=== PATIENT | male | born 1960 | race Caucasian/White ===

== ENCOUNTER 2017-05-27 10:04 | Emergency (ER) | payer SELFPAY ==
[~2017-05-27] VITALS: Ht 190.5 cm; Wt 81.5 kg
[~2017-05-27 10:04] MED LIST: CYMB30CA PO; ECOT81TA2 PO; FENO1TAB76 PO; FOLI1 PO; LISI5 PO; LORTA5 PO; THERM PO; THIA100T PO
[2017-05-27 10:06] VITALS: BP 131/78; PULSE 84; RESP 20; TEMP 97.6; O2SAT 100
--- NOTE | 2017-05-27 10:21 | PD ---
HPI Chief Complaint: Cold / Flu Symptoms Time Seen by Provider: 10:12 Travel History International Travel<30 days: No Contact w/Intl Traveler<30days: No Traveled to known affect area: No History of Present Illness HPI 57-year-old male presents to the emergency department, with 60 history of upper respiratory symptoms including headache, postnasal drip, shortness of breath, ear pain, congestion in the chest, and cough. Patient states he quit smoking 2 weeks ago. He is currently living at the [facility]. He denies significant fever or chills but does have body aches. He feels worse today than he did yesterday. She states productive cough with yellow mucus this morning. Patient has no known drug allergies. PFSH Past Medical History Arthritis: Yes Autoimmune Disease: No Anxiety: Yes Depression: Yes Cancer: No Cardiovascular Problems: Yes (STENT) High Cholesterol: Yes Cerebrovascular Accident: Yes (TIA) Diabetes: No Endocrine: No Gastrointestinal Disorders: No Genitourinary: Yes Hypertension: Yes Implanted Vascular Access Dvce: No Musculoskeletal: Yes Neurologic: Yes Psychiatric: Yes Reproductive: No Respiratory: No Immunizations Current: Yes Past Surgical History Abdominal Surgery: No (HERNIA ) Cardiac Surgery: Yes (CARDIAC STENT) Ear Surgery: No Endocrine Surgery: No Eye Surgery: No Genitourinary Surgery: No Gynecologic Surgery: No Neurologic Surgery: No Oral Surgery: No Thoracic Surgery: No Other Surgery: Yes Social History Alcohol Use: Yes Tobacco Use: Yes Substance Use: No ( ) Allergies-Medications (Allergen,Severity, Reaction): Coded Allergies: No Known Allergies (Unverified , 04/29/16) Reported Meds & Prescriptions Reported Meds & Active Scripts Active Erie 5-325 mg (Hydrocodone-Acetaminophen 5-325 mg) 1 Tab 1 Tab PO Q6H PRN Prinivil 5 mg (Lisinopril) 5 Mg Tab 5 Mg PO DAILY Tricor (Fenofibrate) 48 Mg Tab 48 Mg PO DAILY Vitamin B1 (Thiamine HCl) 100 Mg Tab 100 Mg PO DAILY Thera M Plus (Multivitamins/Minerals Therap) 1 Tab Tab 1 Tab PO DAILY Folate 1 Mg Tab (Folic Acid) 1 Mg Tab 1 Mg PO DAILY Ecotrin (Aspirin) 81 Mg Tabec 81 Mg PO DAILY Reported Cymbalta (Duloxetine HCl) 30 Mg Cap 60 Mg PO BID Review of Systems Except as stated in HPI: all other systems reviewed are Neg General / Constitutional: Positive: Chills, No: Fever Eyes: No: Visual changes HENT: Positive: Headaches, Sore Throat, Rhinitis, Rhinorrhea, Congestion, Earache, No: Vertigo, Lightheadedness, Nosebleed, Neck Stiffness, Neck Pain, Gingival Bleeding, Dental Difficulties, Ear Discharge Cardiovascular: No: Chest Pain or Discomfort Respiratory: Positive: Cough, Shortness of Breath, No: Wheezing, Sneezing Gastrointestinal: No: Nausea, Vomiting, Diarrhea, Abdominal Pain Genitourinary: No: Dysuria Musculoskeletal: No: Pain Skin: No Rash Neurologic: No: Weakness Psychiatric: No: Depression Endocrine: No: Polydipsia Hematologic/Lymphatic: No: Easy Bruising Physical Exam Narrative GENERAL: Patient appears ill but not septic. SKIN: Warm and dry. Normal color. Normal turgor. HEAD: Atraumatic. Normocephalic. EYES: Pupils equal and round. No scleral icterus. No injection or drainage. ENT: No nasal bleeding or discharge. Mucous membranes pink and moist. TMs show the left TM be somewhat dull with erythema and injection. Patient has no sinus tenderness to palpation. Posterior pharynx is injected and raw appearing without significant swelling. Uvula is midline. No significant tonsillitis. NECK: Trachea midline. Supple nontender. CARDIOVASCULAR: Regular rate and rhythm. RESPIRATORY: No accessory muscle use. Coarse breath sounds to auscultation. No wheezing or rales. Breath sounds equal bilaterally. GASTROINTESTINAL: Abdomen soft, non-tender, nondistended. Hepatic and splenic margins not palpable. MUSCULOSKELETAL: Extremities without clubbing, cyanosis, or edema. No obvious deformities. NEUROLOGICAL: Awake and alert. No obvious cranial nerve deficits. Motor grossly within normal limits. Five out of 5 muscle strength in the arms and legs. Normal speech. PSYCHIATRIC: Appropriate mood and affect; insight and judgment normal. Data Data Last Documented VS Vital Signs Date Time Temp Pulse Resp B/P Pulse Ox O2 Delivery O2 Flow Rate FiO2 05/27/17 10:06 97.6 84 20 131/78 100 Room Air MDM Medical Decision Making Medical Screen Exam Complete: Yes Emergency Medical Condition: Yes Differential Diagnosis Upper respiratory infection. Otitis media. Postnasal drip. Bronchitis. Narrative Course Patient will be treated with azithromycin 250 mg as directed. Patient also given prednisone 20 mg twice a day 5 days. Patient also given albuterol metered-dose inhaler 2 puffs every 6 hours when necessary cough and wheeze. Patient is to rest and push fluids. Note is given to the patient for 5 days daily. Patient follow up if symptoms worsen as needed. Diagnosis Primary Impression: Left otitis media with effusion Additional Impression: Bronchitis Referrals: [facility] Patient Instructions: Acute Bronchitis (ED), General Instructions, How to Use a Metered-Dose Inhaler (ED) Departure Forms: Work Release Special Instructions: Light duty for the next 5 days. Additional Instructions: Patient will be treated with azithromycin 250 mg as directed. Patient also given prednisone 20 mg twice a day 5 days. Patient also given albuterol metered-dose inhaler 2 puffs every 6 hours when necessary cough and wheeze. Patient is to rest and push fluids. Note is given to the patient for 5 days daily. Patient follow up if symptoms worsen as needed. Med/Other Pt SpecificInfo: Prescription(s) given Disposition: 01 DISCHARGE HOME Condition: Stable Casper Menon May 27, 2017 10:21
[2017-05-27] MEDS ORDERED: VENTAER INH (10:22)
[2017-05-27] MEDS ORDERED: AZIT250T3 PO (10:22)
[2017-05-27] MEDS ORDERED: PRED20 PO (10:22)
== END 2017-05-27 11:19 | disposition home or self-care (01) ==
LOC: NEPK 10:04
DX: H65.92 Unspecified nonsuppurative otitis media, left ear (principal); J40 Bronchitis, not specified as acute or chronic; Z87.891 Personal history of nicotine dependence
CPT/HCPCS: 99284

== ENCOUNTER 2017-06-02 22:22 | Emergency (ER) | payer SELFPAY ==
[~2017-06-02] VITALS: Ht 190.5 cm; Wt 85.0 kg
[~2017-06-02 22:22] MED LIST changes: +AZIT250T3 PO; +PRED20 PO; +VENTAER INH
[2017-06-02 22:44] VITALS: BP 133/73; PULSE 88; RESP 18; TEMP 98.2; O2SAT 100
[2017-06-02] MEDS ORDERED: SODIUM CHLORIDE 0.9% FLUSH 10 ML FLUSH IV FLUSH PRN (22:45)
[2017-06-02 22:49] VITALS: O2SAT 100
--- NOTE | 2017-06-02 23:10 | PD ---
HPI . Vomiting Chief Complaint: GI Complaint Time Seen by Provider: 22:32 Travel History International Travel<30 days: No Contact w/Intl Traveler<30days: No Traveled to known affect area: No History of Present Illness HPI This is a 57 year old male with is a history of CAD who presents to [place] [facility] with 5 hours of vomiting and diarrhea. The patient ate dinner around 6pm and started throwing up at 6:12pm. He also had several episodes of diarrhea. He is complaining of epigastric abdominal pain. He states the pain is severe 10/10. He also admits to chills and lightheadedness. He denies any blood in the vomitus or stool. He is also complaining of back pain which may be related to his sciatica. He does not currently take any medications. He does not have a PCP. He lives in the [facility]. He does not drink alcohol or use any tobacco products or recreational drugs. The patient feels that his symptoms were brought on by tainted food. PFSH Past Medical History Arthritis: Yes Autoimmune Disease: No Anxiety: Yes Depression: Yes Cancer: No Cardiovascular Problems: Yes (STENT ) High Cholesterol: Yes Cerebrovascular Accident: Yes (TIA) Diabetes: No Endocrine: No Gastrointestinal Disorders: No Genitourinary: Yes Hypertension: Yes Implanted Vascular Access Dvce: No Musculoskeletal: Yes Neurologic: Yes Psychiatric: Yes Reproductive: No Respiratory: No Immunizations Current: Yes Past Surgical History Abdominal Surgery: No (HERNIA ) Cardiac Surgery: Yes (CARDIAC STENT) Ear Surgery: No Endocrine Surgery: No Eye Surgery: No Genitourinary Surgery: No Gynecologic Surgery: No Neurologic Surgery: No Oral Surgery: No Thoracic Surgery: No Other Surgery: Yes Social History Alcohol Use: Yes (DENIES ) Tobacco Use: Yes (DENIES ) Substance Use: No ( ) Allergies-Medications (Allergen,Severity, Reaction): Coded Allergies: No Known Allergies (Unverified , 05/27/17) Reported Meds & Prescriptions Reported Meds & Active Scripts Active No Active Prescriptions or Reported Medications Review of Systems Except as stated in HPI: all other systems reviewed are Neg General / Constitutional: Positive: Chills, No: Fever HENT: No: Headaches, Sore Throat Cardiovascular: No: Chest Pain or Discomfort Respiratory: No: Cough, Shortness of Breath, Wheezing Gastrointestinal: Positive: Nausea, Vomiting, Diarrhea, Abdominal Pain, No: Hematemesis, Hematochezia, Constipation Genitourinary: No: Urgency, Decreased Urinary Output Musculoskeletal: Positive: Pain (back pain from sciatica), No: Myalgias Neurologic: Positive: Dizziness, No: Weakness, Syncope Psychiatric: Positive: Anxiety, Depression Physical Exam Narrative GENERAL: This patient was sitting in the exam bed. He is clutching a bucket. He is alert and oriented x3 SKIN: Warm and dry. HEAD: Atraumatic. Normocephalic. EYES: Pupils equal and round. Extraocular motions intact ENT: No nasal bleeding or discharge. Mucous membranes pink and moist. NECK: Trachea midline. No lymphadenopathy, no JVD CARDIOVASCULAR: Regular rate and rhythm. No murmurs or extra beats RESPIRATORY: No accessory muscle use. Lungs are clear bilaterally GASTROINTESTINAL: Abdomen is soft and nondistended. Bowel sounds are heard throughout. No masses. No tenderness when pressing with a stethoscope but positive tenderness on palpation. No guarding, no rigidity. MUSCULOSKELETAL: No obvious deformities. No edema. Moves all limbs. NEUROLOGICAL: Awake and alert. No obvious cranial nerve deficits. Motor grossly within normal limits. Normal speech. PSYCHIATRIC: Appropriate mood and affect; insight and judgment normal. Data Data Last Documented VS Vital Signs Date Time Temp Pulse Resp B/P (MAP) Pulse Ox O2 Delivery O2 Flow Rate FiO2 06/02/17 22:49 100 Room Air 06/02/17 22:44 98.2 88 18 133/73 (93) Orders Orders Complete Blood Count With Diff (06/02/17 22:32) Comprehensive Metabolic Panel (06/02/17 22:32) Lipase (06/02/17 22:32) Iv Access Insert/Monitor (06/02/17 22:32) Ecg Monitoring (06/02/17 22:32) Oximetry (06/02/17 22:32) Sodium Chloride 0.9% Flush (Ns Flush) (06/02/17 22:45) Ondansetron Inj (Zofran Inj) (06/02/17 23:30) Labs Laboratory Tests Test 06/02/17 23:50 White Blood Count 10.1 TH/MM3 Red Blood Count 4.41 MIL/MM3 Hemoglobin 14.0 GM/DL Hematocrit 40.3 % Mean Corpuscular Volume 91.3 FL Mean Corpuscular Hemoglobin 31.6 PG Mean Corpuscular Hemoglobin Concent 34.7 % Red Cell Distribution Width 16.0 % Platelet Count 202 TH/MM3 Mean Platelet Volume 8.0 FL Neutrophils (%) (Auto) 92.9 % Lymphocytes (%) (Auto) 2.2 % Monocytes (%) (Auto) 3.5 % Eosinophils (%) (Auto) 1.3 % Basophils (%) (Auto) 0.1 % Neutrophils # (Auto) 9.4 TH/MM3 Lymphocytes # (Auto) 0.2 TH/MM3 Monocytes # (Auto) 0.4 TH/MM3 Eosinophils # (Auto) 0.1 TH/MM3 Basophils # (Auto) 0.0 TH/MM3 CBC Comment DIFF FINAL Differential Comment Blood Urea Nitrogen 19 MG/DL Creatinine 1.06 MG/DL Random Glucose 118 MG/DL Total Protein 6.8 GM/DL Albumin 3.7 GM/DL Calcium Level 8.5 MG/DL Alkaline Phosphatase 81 U/L Aspartate Amino Transf (AST/SGOT) 24 U/L Alanine Aminotransferase (ALT/SGPT) 21 U/L Total Bilirubin 0.6 MG/DL Sodium Level 140 MEQ/L Potassium Level 4.6 MEQ/L Chloride Level 105 MEQ/L Carbon Dioxide Level 25.3 MEQ/L Anion Gap 10 MEQ/L Estimat Glomerular Filtration Rate 72 ML/MIN Lipase 86 U/L MDM Medical Decision Making Medical Screen Exam Complete: Yes Emergency Medical Condition: Yes Medical Record Reviewed: Yes (Here on 05/27 for otitis media, treated with antibiotics) Differential Diagnosis Gastroenteritis, pancreatitis, cholecystitis, acute food poisoning, gastritis. Narrative Course This is a 57-year-old gentleman who presents with sudden onset nausea and vomiting. He has not had symptoms in the ED. He is hemodynamically stable and does not show signs of dehydration. His BMP and CBC are normal. He was given Zofran for nausea. BMP Diagram 06/02/17 23:50 Total Protein 6.8, Albumin 3.7, Calcium Level 8.5, Alkaline Phosphatase 81, Aspartate Amino Transf (AST/SGOT) 24, Alanine Aminotransferase (ALT/SGPT) 21, Total Bilirubin 0.6 CBC Diagram 06/02/17 23:50 The patient has been continuously asking for food and drink. Several of us have explained to the patient that we do not generally allow patients with vomiting to have anything to eat or drink. This patient is stable for discharge. Diagnosis Primary Impression: Abdominal pain Qualified Codes: R10.9 - Unspecified abdominal pain Additional Impression: Nausea & vomiting Qualified Codes: R11.2 - Nausea with vomiting, unspecified Patient Instructions: Acute Nausea and Vomiting (DC), General Instructions Scripts No Active Prescriptions or Reported Meds Disposition: 01 DISCHARGE HOME Condition: Stable Love Garcia MD Jun 02, 2017 23:10
[2017-06-02] MEDS ORDERED: ONDANSETRON HCL 4 MG/2 ML VIAL IV PUSH ONE (23:30)
[2017-06-03 00:13] LABS: AUTOMATED NEUTROPHIL # 9.4 TH/MM3 (1.8-7.7); BASOPHIL % 0.1 % (0.0-2.0); EOSINOPHIL # 0.1 TH/MM3 (0-0.4); EOSINOPHIL % 1.3 % (0.0-4.0); HEMATOCRIT 40.3 % (39.0-51.0); HEMO FLAGS DIFF FINAL; LYMPH % 2.2 % (9.0-44.0); LYMPHOCYTE # 0.2 TH/MM3 (1.0-4.8); MEAN CELL VOLUME 91.3 FL (80.0-100.0); MEAN CORPUSCULAR HEMOGLOBIN 31.6 PG (27.0-34.0); MEAN CORPUSCULAR HGB CONC 34.7 % (32.0-36.0); MONO % 3.5 % (0.0-8.0); NEUT % 92.9 % (16.0-70.0); PLATELET COUNT 202 TH/MM3 (150-450); RED BLOOD COUNT 4.41 MIL/MM3 (4.50-5.90); WHITE BLOOD COUNT 10.1 TH/MM3 (4.0-11.0)
[2017-06-03 00:29] LABS: ALKALINE PHOSPHATASE 81 U/L (45-117); ALT (GPT) 21 U/L (12-78); ANION GAP 10 MEQ/L (5-15); AST (GOT) 24 U/L (15-37); BICARBONATE 25.3 MEQ/L (21.0-32.0); BLOOD UREA NITROGEN 19 MG/DL (7-18); CHLORIDE 105 MEQ/L (98-107); GLOMERULAR FILTRATION RATE 72 ML/MIN (>89); SODIUM (NA) 140 MEQ/L (136-145); TOTAL BILIRUBIN ADULT 0.6 MG/DL (0.2-1.0)
[2017-06-03 00:30] LABS: POTASSIUM 4.6 MEQ/L (3.5-5.1)
== END 2017-06-03 01:39 | disposition home or self-care (01) ==
LOC: NEPC 22:22
DX: R10.9 Unspecified abdominal pain (principal); R11.2 Nausea with vomiting, unspecified; I25.10 Atherosclerotic heart disease of native coronary artery without angina pectoris; I10 Essential (primary) hypertension; Z95.5 Presence of coronary angioplasty implant and graft; E78.00 Pure hypercholesterolemia, unspecified
CPT/HCPCS: 80053; 83690; 85025; 96374; 99284; J2405

== ENCOUNTER 2017-06-03 02:14 | Emergency (ER) | payer SELFPAY ==
[~2017-06-03] VITALS: Ht 172.7 cm; Wt 85.0 kg
[2017-06-03 02:15] VITALS: BP 115/75; PULSE 88; RESP 16; TEMP 96.7; O2SAT 99
[2017-06-03 03:34] VITALS: BP_SYST 107; BP_SYST 120; BP_SYST 121; BP_DIAS 63; BP_DIAS 67; BP_DIAS 70; RESP 18; RESP 20
--- NOTE | 2017-06-03 03:37 | PD ---
HPI . Syncope Chief Complaint: Medical Clearance Time Seen by Provider: 03:29 Travel History International Travel<30 days: No Contact w/Intl Traveler<30days: No Traveled to known affect area: No History of Present Illness HPI This patient was just discharged from the emergency department. He was being evaluated for epigastric pain associated with nausea and vomiting. He feels that he ate some bad food. His workup was unremarkable. He had no emesis in the emergency department. He was discharged. He is homeless. He got to the [facility] and was reportedly told that the buses were no longer running. He then reportedly crawled onto a stretcher in the lobby was told that he could not stay there. He then checked back in. The patient told me that he was discharged to the [facility] where he subsequently had a syncopal episode. 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 PFSH Past Medical History Arthritis: Yes Autoimmune Disease: No Anxiety: Yes Depression: Yes Cancer: No Cardiovascular Problems: Yes (STENT ) High Cholesterol: Yes Cerebrovascular Accident: Yes (TIA) Diabetes: No Endocrine: No Gastrointestinal Disorders: No Genitourinary: Yes Hypertension: Yes Implanted Vascular Access Dvce: No Musculoskeletal: Yes Neurologic: Yes Psychiatric: Yes Reproductive: No Respiratory: No Immunizations Current: Yes Past Surgical History Abdominal Surgery: No (HERNIA ) Cardiac Surgery: Yes (CARDIAC STENT) Ear Surgery: No Endocrine Surgery: No Eye Surgery: No Genitourinary Surgery: No Gynecologic Surgery: No Neurologic Surgery: No Oral Surgery: No Thoracic Surgery: No Other Surgery: Yes Social History Alcohol Use: Yes (DENIES ) Tobacco Use: Yes (DENIES ) Substance Use: No ( ) Allergies-Medications (Allergen,Severity, Reaction): Coded Allergies: No Known Allergies (Unverified , 05/27/17) Reported Meds & Prescriptions Reported Meds & Active Scripts Active No Active Prescriptions or Reported Medications Review of Systems Except as stated in HPI: all other systems reviewed are Neg General / Constitutional: No: Fever, Chills Gastrointestinal: Positive: Nausea, Vomiting, Abdominal Pain Neurologic: Positive: Syncope Physical Exam Narrative GENERAL: Awake and alert and in no acute distress. SKIN: Warm and dry. HEAD: Atraumatic. Normocephalic. EYES: Pupils equal and round. NECK: Trachea midline. CARDIOVASCULAR: Regular rate and rhythm. RESPIRATORY: No accessory muscle use. MUSCULOSKELETAL: No obvious deformities. No edema. NEUROLOGICAL: Awake and alert. No obvious cranial nerve deficits. Motor grossly within normal limits. Normal speech. PSYCHIATRIC: Appropriate mood and affect; insight and judgment normal. Data Data Last Documented VS Vital Signs Date Time Temp Pulse Resp B/P (MAP) Pulse Ox O2 Delivery O2 Flow Rate FiO2 06/03/17 03:34 91 18 120/70 (87) 91 20 121/63 (82) 106 20 107/67 (80) 06/03/17 02:15 96.7 99 Room Air Orders Orders Orthostatic Vital Signs (06/03/17 03:29) [facility] Medical Decision Making Medical Screen Exam Complete: Yes Emergency Medical Condition: Yes Differential Diagnosis My differential diagnosis of syncope includes but is not limited to cardiac arrhythmia, hypovolemia, anemia, neurological catastrophe, vasovagal response Narrative Course This patient presents back to us with the complaint of syncope. We do not really believe that he had a syncopal episode. The patient has now been here for a number of hours and has had no witnessed vomiting. I will check orthostatic vital signs and then plan to discharge him. He is orthostatic in that his heart rate goes from 91-106 and his systolic blood pressure goes from 120-107. He will be given a fluid bolus and will then be discharged home. Diagnosis Primary Impression: Malingering Scripts No Active Prescriptions or Reported Meds Disposition: 01 DISCHARGE HOME Condition: Stable Love Garcia MD Jun 03, 2017 03:37
[2017-06-03] MEDS ORDERED: SODIUM CHLOR 0.9% 1000 ML INJ 1,000 ML IV ONE (03:45)
[2017-06-03 06:10] VITALS: BP 124/73; PULSE 89; RESP 18; O2SAT 96
== END 2017-06-03 06:32 | disposition home or self-care (01) ==
LOC: NEPC 02:14
DX: Z76.5 Malingerer [conscious simulation] (principal); Z59.0 Homelessness; I10 Essential (primary) hypertension
CPT/HCPCS: 96360; 99284; J7030

== ENCOUNTER 2017-08-19 13:27 | Emergency (ER) | payer OTHER ==
[2017-08-19 13:28] VITALS: BP 135/67; PULSE 82; RESP 16; TEMP 98.8; O2SAT 99
[2017-08-19] MEDS ORDERED: BACT800T5 PO (14:28)
[2017-08-19] MEDS ORDERED: CEPH-460 PO (14:28)
--- NOTE | 2017-08-19 14:29 | PD ---
HPI Chief Complaint: Bite or Sting Time Seen by Provider: 14:27 Travel History International Travel<30 days: No Contact w/Intl Traveler<30days: No Traveled to known affect area: No History of Present Illness HPI 57-year-old male presents for evaluation of an area of skin redness and pain in the left axilla. He first noticed it yesterday. It is a throbbing pain that is worse with palpation. Denies drainage, fevers or chills. He believes that maybe he was bitten by a spider although he does not recall any bug bites or puncture wounds. No other complaints. PFSH Past Medical History Arthritis: Yes Autoimmune Disease: No Anxiety: Yes Depression: Yes Cancer: No Cardiovascular Problems: Yes (STENT ) High Cholesterol: Yes Cerebrovascular Accident: Yes (TIA) Diabetes: No Endocrine: No Gastrointestinal Disorders: No Genitourinary: Yes Hypertension: Yes Implanted Vascular Access Dvce: No Musculoskeletal: Yes Neurologic: Yes Psychiatric: Yes Reproductive: No Respiratory: No Immunizations Current: Yes Past Surgical History Abdominal Surgery: No (HERNIA ) Cardiac Surgery: Yes (CARDIAC STENT) Ear Surgery: No Endocrine Surgery: No Eye Surgery: No Genitourinary Surgery: No Gynecologic Surgery: No Neurologic Surgery: No Oral Surgery: No Thoracic Surgery: No Other Surgery: Yes Social History Alcohol Use: Yes (DENIES ) Tobacco Use: Yes (DENIES ) Substance Use: No ( ) Allergies-Medications (Allergen,Severity, Reaction): Coded Allergies: No Known Allergies (Unverified , 05/27/17) Reported Meds & Prescriptions Reported Meds & Active Scripts Active Keflex (Cephalexin) 500 Mg Capsule 500 Mg PO Q8H 10 Days Bactrim DS (Sulfamethoxazole-Trimethoprim) 800-160 Mg Tab 1 Tab PO BID Review of Systems General / Constitutional: No: Fever, Chills Skin: Positive Other (positive for skin redness, pain, denies drainage or fevers.) Physical Exam Narrative GENERAL: Well-nourished male in no acute distress SKIN: Warm and dry. 2 cm area of erythema and induration in the left axilla with central excoriation without drainage or fluctuance. HEAD: Atraumatic. Normocephalic. EYES: Pupils equal and round. No scleral icterus. No injection or drainage. ENT: No nasal bleeding or discharge. Mucous membranes pink and moist. NECK: Trachea midline. No JVD. CARDIOVASCULAR: Regular rate and rhythm. No murmur appreciated. RESPIRATORY: No accessory muscle use. Clear to auscultation. Breath sounds equal bilaterally. Data Data Last Documented VS Vital Signs Date Time Temp Pulse Resp B/P (MAP) Pulse Ox O2 Delivery O2 Flow Rate FiO2 08/19/17 13:28 98.8 82 16 135/67 (89) 99 MDM Medical Decision Making Medical Screen Exam Complete: Yes Emergency Medical Condition: Yes Medical Record Reviewed: Yes Differential Diagnosis Cellulitis, folliculitis, abscess Narrative Course Examination is consistent with cellulitis and folliculitis in the left axilla. The patient will be treated with Bactrim and Keflex. Diagnosis Primary Impression: Cellulitis of left axilla Departure Forms: Tests/Procedures, Work Release Enter return to work date: Aug 21, 2017 Additional Instructions: Medication as prescribed. Warm compresses several times a day 15 minutes at a time. Return for new or worsening symptoms. Med/Other Pt SpecificInfo: Prescription(s) given Scripts Cephalexin (Keflex) 500 Mg Capsule 500 MG PO Q8H for Infection for 10 Days, #30 CAP 0 Refills Prov: Tremaine Kothari MD 08/19/17 Sulfamethoxazole-Trimethoprim (Bactrim DS) 800-160 Mg Tab 1 TAB PO BID for Infection, #20 TAB 0 Refills Prov: Tremaine Kothari MD 08/19/17 Disposition: 01 DISCHARGE HOME Condition: Stable Winston Larkin Aug 19, 2017 14:29
== END 2017-08-19 14:51 | disposition home or self-care (01) ==
LOC: NEPK 13:27
DX: L03.112 Cellulitis of left axilla (principal)
CPT/HCPCS: 99284

== ENCOUNTER 2018-01-12 15:30 | Emergency (ER) | payer SELFPAY ==
[~2018-01-12 15:30] MED LIST changes: -AZIT250T3 PO; +BACT800T5 PO; +CEPH-460 PO; -CYMB30CA PO; -ECOT81TA2 PO; -FENO1TAB76 PO; -FOLI1 PO; -LISI5 PO; -LORTA5 PO; -PRED20 PO; -THERM PO; -THIA100T PO; -VENTAER INH
[2018-01-12 15:55] VITALS: BP 152/85; PULSE 87; RESP 18; TEMP 98.8; O2SAT 97
--- NOTE | 2018-01-12 16:38 | PD ---
HPI . Razo Act Chief Complaint: Psychiatric Symptoms Time Seen by Provider: 16:20 Travel History International Travel<30 days: No Contact w/Intl Traveler<30days: No Traveled to known affect area: No History of Present Illness HPI This patient was brought to us by the [place] [employer] under a Razo Act. The Razo Act states that the patient called the police department and told him that he had an explosive device on him. The patient subsequently denied having called 911. Officer subsequently learned that the patient has not slept in days. He also admits that he has been drinking. He states that he has not been taking his psychiatric medication and has been using alcohol in lieu of his psychiatric medications. The patient states that his sciatica is acting up. He states that it flared up when he was placed under arrest. He is asking me to take a scalpel and cut out his sciatic nerve. PFSH Past Medical History Arthritis: Yes Autoimmune Disease: No Anxiety: Yes Depression: Yes Cancer: No Cardiovascular Problems: Yes (STENT ) High Cholesterol: Yes Cerebrovascular Accident: Yes (TIA) Diabetes: No Diminished Hearing: No Endocrine: No Gastrointestinal Disorders: No Genitourinary: Yes Hypertension: Yes Implanted Vascular Access Dvce: No Musculoskeletal: Yes Neurologic: Yes (Degenerative disc disease) Psychiatric: Yes Reproductive: No Respiratory: No Immunizations Current: Yes Tetanus Vaccination: Unknown Influenza Vaccination: No Past Surgical History Abdominal Surgery: Yes (Hernia Repair) Cardiac Surgery: Yes (CARDIAC STENT) Ear Surgery: No Endocrine Surgery: No Eye Surgery: No Genitourinary Surgery: No Gynecologic Surgery: No Neurologic Surgery: No Oral Surgery: No Thoracic Surgery: No Other Surgery: Yes Social History Alcohol Use: Yes (12 beers daily) Tobacco Use: Yes (1 ppd) Substance Use: No ( ) Allergies-Medications (Allergen,Severity, Reaction): Coded Allergies: No Known Allergies (Unverified Adverse Reaction, Unknown, 01/12/18) Reported Meds & Prescriptions Reported Meds & Active Scripts Active Review of Systems Except as stated in HPI: all other systems reviewed are Neg Physical Exam Narrative GENERAL: The patient was standing up in the room wearing papers scrubs with his forehead resting against the wall. When I went back in the second time, he is laying on the stretcher on his right side with his left leg extended off the side of the bed. SKIN: Warm and dry. HEAD: Normocephalic/atraumatic. EYES: Pupils are equal. Extraocular movements are intact. NECK: Normal range of motion. CARDIOVASCULAR: Regular rate and rhythm. RESPIRATORY: Nonlabored respirations. MUSCULOSKELETAL: Atraumatic. NEUROLOGICAL: Nonfocal. PSYCHIATRIC: He smells of alcohol. He has a normal speech pattern. Data Data Last Documented VS Vital Signs Date Time Temp Pulse Resp B/P (MAP) Pulse Ox O2 Delivery O2 Flow Rate FiO2 01/12/18 15:55 98.8 87 18 152/85 (107) 97 Orders Orders Complete Blood Count With Diff (01/12/18 16:20) Comprehensive Metabolic Panel (01/12/18 16:20) Thyroid Stimulating Hormone (01/12/18 16:20) Psych Screen (01/12/18 16:20) Drug Screen, Random Urine (01/12/18 16:20) MDM Medical Decision Making Medical Screen Exam Complete: Yes Emergency Medical Condition: Yes Differential Diagnosis Differential diagnosis of psychosis includes but is not limited to schizophrenia , schizoaffective disorder, bipolar disorder, intoxication, substance abuse, dementia Narrative Course This patient presents to us as a Razo Act after reportedly calling the police stating that he had an explosive device on him. He admits to drinking alcohol. He states that he has been off his psychiatric medications. He is complaining with pain in his left leg. I will give him a shot of Toradol for that. Medical clearance exam is in process. Diagnosis Primary Impression: Medical clearance for psychiatric admission Condition: Stable Love Garcia MD Jan 12, 2018 16:38
[2018-01-12] MEDS ORDERED: KETOROLAC TROMETHAMINE 60 MG/2 ML (IM) VIAL IM ONE (16:45)
[2018-01-12 17:23] LABS: BASOPHIL # 0.1 TH/MM3 (0-0.2); BASOPHIL % 1.3 % (0.0-2.0); EOSINOPHIL # 0.1 TH/MM3 (0-0.4); EOSINOPHIL % 2.6 % (0.0-4.0); HEMATOCRIT 39.5 % (39.0-51.0); HEMOGLOBIN 13.6 GM/DL (13.0-17.0); LYMPH % 30.3 % (9.0-44.0); LYMPHOCYTE # 1.6 TH/MM3 (1.0-4.8); MEAN CELL VOLUME 92.9 FL (80.0-100.0); MEAN CORPUSCULAR HEMOGLOBIN 32.1 PG (27.0-34.0); MEAN CORPUSCULAR HGB CONC 34.5 % (32.0-36.0); MEAN PLATELET VOLUME 7.7 FL (7.0-11.0); MONO % 7.4 % (0.0-8.0); MONOCYTE # 0.4 TH/MM3 (0-0.9); NEUT % 58.4 % (16.0-70.0); PLATELET COUNT 219 TH/MM3 (150-450); RED BLOOD COUNT 4.25 MIL/MM3 (4.50-5.90); RED CELL DISTRIBUTION WIDTH 14.9 % (11.6-17.2); WHITE BLOOD COUNT 5.2 TH/MM3 (4.0-11.0)
[2018-01-12 17:52] LABS: ALBUMIN 3.9 GM/DL (3.4-5.0); AST (GOT) 21 U/L (15-37); BICARBONATE 25.4 MEQ/L (21.0-32.0); BLOOD UREA NITROGEN 12 MG/DL (7-18); CALCIUM 8.3 MG/DL (8.5-10.1); CHLORIDE 109 MEQ/L (98-107); CREATININE 0.82 MG/DL (0.60-1.30); GLOMERULAR FILTRATION RATE 96 ML/MIN (>89); GLUCOSE,RANDOM 102 MG/DL (74-106); SODIUM (NA) 141 MEQ/L (136-145)
[2018-01-12 17:53] LABS: ALT (GPT) 24 U/L (12-78)
[2018-01-12 18:02] LABS: ALKALINE PHOSPHATASE 85 U/L (45-117); TOTAL BILIRUBIN ADULT 0.4 MG/DL (0.2-1.0); TOTAL PROTEIN 7.1 GM/DL (6.4-8.2)
--- NOTE | 2018-01-12 18:11 | PD ---
Data Data Last Documented VS Vital Signs Date Time Temp Pulse Resp B/P (MAP) Pulse Ox O2 Delivery O2 Flow Rate FiO2 01/12/18 21:02 99.6 83 18 145/78 (100) 98 Room Air Orders Orders Complete Blood Count With Diff (01/12/18 16:20) Comprehensive Metabolic Panel (01/12/18 16:20) Thyroid Stimulating Hormone (01/12/18 16:20) Psych Screen (01/12/18 16:20) Drug Screen, Random Urine (01/12/18 16:20) Ketorolac Inj (Toradol Inj) (01/12/18 16:45) Electrocardiogram (01/12/18 ) Alcohol Withdrawal Asmt-Ciwa ONCE (01/12/18 21:36) Ondansetron Odt (Zofran Odt) (01/12/18 21:45) Acetaminophen (Tylenol) (01/12/18 21:45) Flumazenil Inj (Romazicon Inj) (01/12/18 21:45) Lorazepam (Ativan) (01/12/18 21:45) Lorazepam Inj (Ativan Inj) (01/12/18 21:45) Lorazepam (Ativan) (01/12/18 21:45) Lorazepam Inj (Ativan Inj) (01/12/18 21:45) Lorazepam Inj (Ativan Inj) (01/12/18 21:45) Lorazepam Inj (Ativan Inj) (01/12/18 21:45) Alcohol (Ethanol) (01/12/18 17:05) Labs Laboratory Tests Test 01/12/18 17:05 White Blood Count 5.2 TH/MM3 Red Blood Count 4.25 MIL/MM3 Hemoglobin 13.6 GM/DL Hematocrit 39.5 % Mean Corpuscular Volume 92.9 FL Mean Corpuscular Hemoglobin 32.1 PG Mean Corpuscular Hemoglobin Concent 34.5 % Red Cell Distribution Width 14.9 % Platelet Count 219 TH/MM3 Mean Platelet Volume 7.7 FL Neutrophils (%) (Auto) 58.4 % Lymphocytes (%) (Auto) 30.3 % Monocytes (%) (Auto) 7.4 % Eosinophils (%) (Auto) 2.6 % Basophils (%) (Auto) 1.3 % Neutrophils # (Auto) 3.0 TH/MM3 Lymphocytes # (Auto) 1.6 TH/MM3 Monocytes # (Auto) 0.4 TH/MM3 Eosinophils # (Auto) 0.1 TH/MM3 Basophils # (Auto) 0.1 TH/MM3 CBC Comment DIFF FINAL Differential Comment Blood Urea Nitrogen 12 MG/DL Creatinine 0.82 MG/DL Random Glucose 102 MG/DL Total Protein 7.1 GM/DL Albumin 3.9 GM/DL Calcium Level 8.3 MG/DL Alkaline Phosphatase 85 U/L Aspartate Amino Transf (AST/SGOT) 21 U/L Alanine Aminotransferase (ALT/SGPT) 24 U/L Total Bilirubin 0.4 MG/DL Sodium Level 141 MEQ/L Potassium Level 4.0 MEQ/L Chloride Level 109 MEQ/L Carbon Dioxide Level 25.4 MEQ/L Anion Gap 7 MEQ/L Estimat Glomerular Filtration Rate 96 ML/MIN Thyroid Stimulating Hormone 3rd Gen 1.470 uIU/ML Urine Opiates Screen NEG Urine Barbiturates Screen NEG Urine Amphetamines Screen NEG Urine Benzodiazepines Screen NEG Urine Cocaine Screen NEG Urine Cannabinoids Screen NEG Ethyl Alcohol Level 124 MG/DL MDM Medical Record Reviewed: Yes Supervised Visit with KENZIE: No Narrative Course This report is in ERROR Please disregard this report and all prior copies ! This report is in ERROR Please disregard this report and all prior copies ! This report is in ERROR Please disregard this report and all prior copies ! Diagnosis Primary Impression: Medical clearance for psychiatric admission Condition: Aly Banks MD Jan 12, 2018 18:11
[2018-01-12 21:02] VITALS: BP 145/78; PULSE 83; RESP 18; TEMP 99.6; O2SAT 98
[2018-01-12] MEDS ORDERED: LORazepam 1 MG TAB PO PRN (21:45)
[2018-01-12] MEDS ORDERED: ONDANSETRON ODT 4 MG TAB PO PRN (21:45)
[2018-01-12] MEDS ORDERED: LORazepam 2 MG TAB PO PRN (21:45)
[2018-01-12] MEDS ORDERED: LORazepam 2 MG/ML VIAL IV PUSH PRN ×4 (21:45)
[2018-01-12] MEDS ORDERED: FLUMAZENIL 0.5 MG/5 ML VIAL IV PUSH PRN (21:45)
[2018-01-12] MEDS: ACETAMINOPHEN 325 MG TAB PO PRN (21:56)
[2018-01-13 02:15] VITALS: BP 119/60; PULSE 73; RESP 18; TEMP 98.9; O2SAT 98
[2018-01-13 06:35] VITALS: BP 139/81; PULSE 74; RESP 18; TEMP 98.4; O2SAT 98
[2018-01-13] MEDS: ACETAMINOPHEN 325 MG TAB PO PRN (08:25)
--- NOTE | 2018-01-13 08:56 | EKG ---
Date Performed: 01/12/2018 Time Performed: 18:31:56 PTAGE: 57 years EKG: Sinus rhythm Artifact ATYPICAL ECG PREVIOUS TRACING : 04/29/2016 12.32 Since the previous tracing, no significant change noted DOCTOR: Shemar Garnica Interpretating Date/Time 01/13/2018 08:55:33
[2018-01-13 13:36] VITALS: BP 129/60; PULSE 71; RESP 18; O2SAT 99
[2018-01-13] MEDS ORDERED: IBUPROFEN 600 MG TAB PO ONE (17:15)
--- NOTE | 2018-01-13 18:13 | PD.PSY.CON ---
Provisional Diagnosis Admission Date [place] I. Unspecified depressive disorder, alcohol use disorder History of Present Illness Service Psychiatry Consult Requested By ED Reason for Consult Dung villagomez Primary Care Physician Unknown HPI Patient is a 57-year-old man, single, homeless, with a past psychiatric history of self-reported schizophrenia, 3 prior psychiatric admissions last time being one half years ago, reports several suicide attempts via hanging, substance use history significant for alcohol use disorder who was brought under [facility] hernando after he called now when stating that he needed help as well as reported to police that he had an explosive device on him. Patient was seen in the ED, noted to be superficially cooperative interview but states that he has been having voices recently and stating feeling that he wants to "end it " as he states he is tired of living on the streets and was unable to afford his medications which he stopped taking 6 months ago as well as increased to daily drinking. Patient states that prior to his admission states that he does not recall "a bomb as a police stated" but later mentions that he wanted to blow himself up after he was feeling depressed in the context of alcohol intoxication. Patient continues to report feeling depressed along with continued suicidal ideations and auditory hallucinations. Past psychiatric history: Patient reports previous psychiatric diagnosis schizophrenia, 3 previous psychiatric admissions, several suicide attempts via hanging. Substance use history: He reports daily alcohol use usually 2-3 sixpacks of beers denies any substance use. Past medical history patient reports history of sciatica as well as CA 5 years ago with stent placement. Allergies: NKDA Social history: Single, no children, homeless, no income. Past Family Social History Coded Allergies: No Known Allergies (Unverified Adverse Reaction, Unknown, 01/12/18) Discontinued Scripts Cephalexin (Keflex) 500 Mg Capsule, 500 MG PO Q8H for Infection for 10 Days, # 30 CAP 0 Refills Prov:Tremaine Kothari MD 08/19/17 Sulfamethoxazole-Trimethoprim (Bactrim DS) 800-160 Mg Tab, 1 TAB PO BID for Infection, #20 TAB 0 Refills Prov:Tremaine Kothari MD 08/19/17 Current Medications Medications (Trade) Dose Ordered Sig/Anthony Route Start Time Stop Time Status Last Admin (Zofran Odt) 4 mg Q8H PRN PO 01/12/18 21:45 (Tylenol) 650 mg Q4H PRN PO 01/12/18 21:45 01/13/18 08:25 (Romazicon Inj) 0.2 mg Q1M PRN IV PUSH 01/12/18 21:45 (Ativan) 1 mg Q4H PRN PO 01/12/18 21:45 (Ativan Inj) 1 mg Q4H PRN IV PUSH 01/12/18 21:45 (Ativan) 2 mg Q2H PRN PO 01/12/18 21:45 (Ativan Inj) 2 mg Q2H PRN IV PUSH 01/12/18 21:45 (Ativan Inj) 2 mg Q1H PRN IV PUSH 01/12/18 21:45 (Ativan Inj) 2 mg Q15M PRN IV PUSH 01/12/18 21:45 Physical Exam Vital Signs Vital Signs Date Time Temp Pulse Resp B/P (MAP) Pulse Ox O2 Delivery O2 Flow Rate FiO2 01/13/18 13:36 71 18 129/60 (83) 99 Room Air 01/13/18 06:35 98.4 Mental Status Examination Appearance: Disheveled Consciousness: Alert Orientation: Person, Place, Date/Time Speech: Unremarkable Language: Adequate Fund of Knowledge: Inadequate Attention and Concentration: Adequate Memory: Impaired (Surrounding events prior to the hospital) Mood: Sad Affect: Sad Thought Process & Associations: Other ([place]) Thought Content: Hallucinations Hallucination Type: Auditory, Visual (Shadows) Delusion Type: None Suicidal Ideation: Yes Suicidal Plan: No Suicidal Intention: No Homicidal Ideation: No Homicidal Plan: No Homicidal Intention: No Insight: Fair Judgment: Impulsive Assessment & Plan Problem List: (1) Depression ICD Codes: F32.9 - Major depressive disorder, single episode, unspecified Status: Chronic (2) Alcohol abuse ICD Codes: F10.10 - Alcohol abuse, uncomplicated Status: Chronic Assessment & Plan Patient at this time continues report feeling depressed along with auditory hallucinations and continue suicide ideations. Patient with a long history of alcohol use disorder with daily alcohol use and recent intoxication. Patient this time continues to require inpatient stabilization as well as addition/ rehabilitation services for alcohol use. Patient to continue to wait on [facility] list for transfer. Jaime Banerjee MD Jan 13, 2018 18:13
[2018-01-13 18:49] VITALS: BP 135/69; PULSE 68; RESP 18; O2SAT 96
[2018-01-14 02:49] VITALS: BP 141/73; PULSE 68; RESP 17; O2SAT 98
--- NOTE | 2018-01-14 09:52 | PD ---
Physical Exam Date Seen by Provider: Jan 14, 2018 Time Seen by Provider: 09:49 Narrative 57-year-old male previously R[facility] acted, and medically cleared for psychiatric evaluation, has been seen by psychiatric staff and felt to be psychiatrically stable for discharge. Patient is going to go voluntarily to [facility]. Patient was given bus passes to get there. Patient remains medically stable for discharge. Data Data Last Documented VS Vital Signs Date Time Temp Pulse Resp B/P (MAP) Pulse Ox O2 Delivery O2 Flow Rate FiO2 01/14/18 02:49 68 17 141/73 (95) 98 Room Air 01/13/18 06:35 98.4 Orders Orders Complete Blood Count With Diff (01/12/18 16:20) Comprehensive Metabolic Panel (01/12/18 16:20) Thyroid Stimulating Hormone (01/12/18 16:20) Psych Screen (01/12/18 16:20) Drug Screen, Random Urine (01/12/18 16:20) Ketorolac Inj (Toradol Inj) (01/12/18 16:45) Electrocardiogram (01/12/18 ) Alcohol Withdrawal Asmt-Ciwa ONCE (01/12/18 21:36) Ondansetron Odt (Zofran Odt) (01/12/18 21:45) Acetaminophen (Tylenol) (01/12/18 21:45) Flumazenil Inj (Romazicon Inj) (01/12/18 21:45) Lorazepam (Ativan) (01/12/18 21:45) Lorazepam Inj (Ativan Inj) (01/12/18 21:45) Lorazepam (Ativan) (01/12/18 21:45) Lorazepam Inj (Ativan Inj) (01/12/18 21:45) Lorazepam Inj (Ativan Inj) (01/12/18 21:45) Lorazepam Inj (Ativan Inj) (01/12/18 21:45) Alcohol (Ethanol) (01/12/18 17:05) Diet Regular Basic (01/13/18 Breakfast) Diet Regular Basic (01/13/18 Lunch) Diet Regular Basic (01/13/18 Dinner) Ibuprofen (Motrin) (01/13/18 17:15) Diet Regular Basic (01/14/18 Breakfast) Labs Laboratory Tests Test 01/12/18 17:05 White Blood Count 5.2 TH/MM3 Red Blood Count 4.25 MIL/MM3 Hemoglobin 13.6 GM/DL Hematocrit 39.5 % Mean Corpuscular Volume 92.9 FL Mean Corpuscular Hemoglobin 32.1 PG Mean Corpuscular Hemoglobin Concent 34.5 % Red Cell Distribution Width 14.9 % Platelet Count 219 TH/MM3 Mean Platelet Volume 7.7 FL Neutrophils (%) (Auto) 58.4 % Lymphocytes (%) (Auto) 30.3 % Monocytes (%) (Auto) 7.4 % Eosinophils (%) (Auto) 2.6 % Basophils (%) (Auto) 1.3 % Neutrophils # (Auto) 3.0 TH/MM3 Lymphocytes # (Auto) 1.6 TH/MM3 Monocytes # (Auto) 0.4 TH/MM3 Eosinophils # (Auto) 0.1 TH/MM3 Basophils # (Auto) 0.1 TH/MM3 CBC Comment DIFF FINAL Differential Comment Blood Urea Nitrogen 12 MG/DL Creatinine 0.82 MG/DL Random Glucose 102 MG/DL Total Protein 7.1 GM/DL Albumin 3.9 GM/DL Calcium Level 8.3 MG/DL Alkaline Phosphatase 85 U/L Aspartate Amino Transf (AST/SGOT) 21 U/L Alanine Aminotransferase (ALT/SGPT) 24 U/L Total Bilirubin 0.4 MG/DL Sodium Level 141 MEQ/L Potassium Level 4.0 MEQ/L Chloride Level 109 MEQ/L Carbon Dioxide Level 25.4 MEQ/L Anion Gap 7 MEQ/L Estimat Glomerular Filtration Rate 96 ML/MIN Thyroid Stimulating Hormone 3rd Gen 1.470 uIU/ML Urine Opiates Screen NEG Urine Barbiturates Screen NEG Urine Amphetamines Screen NEG Urine Benzodiazepines Screen NEG Urine Cocaine Screen NEG Urine Cannabinoids Screen NEG Ethyl Alcohol Level 124 MG/DL [facility] Medical Record Reviewed: Yes Supervised Visit with KENZIE: Yes Diagnosis Primary Impression: Medical clearance for psychiatric admission Additional Impression: Alcohol abuse Referrals: [facility] Instructions: General Instructions Med/Other Pt SpecificInfo: No Meds Exist/No RX given Disposition: 01 DISCHARGE HOME Condition: Stable Casper Menon Jan 14, 2018 09:52
--- NOTE | 2018-01-14 13:11 | HHI.PYPN ---
Subjective Remarks Patient was seen today for psychiatric reevaluation. The patient was calm, cooperative. Patient reports that he is motivated to go to detox and take care of his alcohol addiction. The patient denies depressive symptoms at the moment , he denies suicidal and homicidal ideation, he denies visual and auditory hallucinations. The patient is logical, coherent and relevant. Oriented 3. On longitudinal observation the patient has been calm, cooperative, no agitation or aggressive behavior observed Review of Systems Constitutional: DENIES: Diaphoretic episodes, Fatigue, Fever, Weight gain, Weight loss, Chills, Dizziness, Change in appetite, Night Sweats Endocrine: DENIES: Heat/cold intolerance, Polydipsia, Polyuria, Polyphagia Ears, nose, mouth, throat: DENIES: Tinnitus, Hearing loss, Vertigo, Nasal discharge, Oral lesions, Throat pain, Hoarseness, Ear Pain, Running Nose, Epistaxis, Sinus Pain, Toothache, Odynophagia Respiratory: DENIES: Apneas, Cough, Snoring, Wheezing, Hemoptysis, Sputum production, Shortness of breath Cardiovascular: DENIES: Chest pain, Palpitations, Syncope, Dyspnea on Exertion , PND, Lower Extremity Edema, Orthopnea, Claudication Gastrointestinal: DENIES: Abdominal pain, Black stools, Bloody stools, Constipation, Diarrhea, Nausea, Vomiting, Difficulty Swallowing, Anorexia Integumentary: DENIES: Abnormal pigmentation, Nail changes, Pruritus, Rash Hematologic/lymphatic: DENIES: Bruising, Lymphadenopathy Immunologic/allergic: DENIES: Eczema, Urticaria Neurologic: DENIES: Abnormal gait, Headache, Localized weakness, Paresthesias, Seizures, Speech Problems, Tremor, Poor Balance Psychiatric: DENIES: Anxiety, Confusion, Mood changes, Depression, Hallucinations, Agitation, Suicidal Ideation, Homicidal Ideation, Delusions Mental Status Examination Appearance: Disheveled Consciousness: Alert Orientation: Person, Place, Date/Time Speech: Unremarkable Language: Adequate Fund of Knowledge: Inadequate Attention and Concentration: Adequate Memory: Impaired (Surrounding events prior to the hospital) Mood: Sad Affect: Sad Thought Process & Associations: Other ([place]) Thought Content: Hallucinations Hallucination Type: Auditory, Visual (Shadows) Delusion Type: None Suicidal Ideation: Yes Suicidal Plan: No Suicidal Intention: No Homicidal Ideation: No Homicidal Plan: No Homicidal Intention: No Insight: Fair Judgment: Impulsive Results Vitals/IOs Vital Signs Date Time Temp Pulse Resp B/P (MAP) Pulse Ox O2 Delivery O2 Flow Rate FiO2 01/14/18 02:49 68 17 141/73 (95) 98 Room Air 01/13/18 06:35 98.4 Assessment & Plan Problem List: (1) Depression ICD Codes: F32.9 - Major depressive disorder, single episode, unspecified Status: Chronic (2) Alcohol abuse ICD Codes: F10.10 - Alcohol abuse, uncomplicated Status: Chronic Assessment & Plan: Patient does not present any neuropsychiatric symptoms that require an immediate psychiatric intervention. The patient does not meet criteria for involuntary psychiatric admission. Patient is motivated to go to detox in [facility]. I will lift the Razo act and patient will be referred and transferred to [facility]. Assessment & Plan Estimated LOS: days Justification for Cont. Inpt. Does not meet criteria for admission Reynold Dowd MD Jan 14, 2018 13:11
== END 2018-01-14 11:30 | disposition home or self-care (01) ==
LOC: NEPD 15:30 → NEPJ 01-14 11:30
DX: F10.10 Alcohol abuse, uncomplicated (principal); M79.605 Pain in left leg; M19.90 Unspecified osteoarthritis, unspecified site; F41.9 Anxiety disorder, unspecified; F32.9 Major depressive disorder, single episode, unspecified; E78.00 Pure hypercholesterolemia, unspecified; I10 Essential (primary) hypertension; F17.200 Nicotine dependence, unspecified, uncomplicated; Z86.73 Personal history of transient ischemic attack (TIA), and cerebral infarction without residual deficits
CPT/HCPCS: 80053; 80307; 84443; 85025; 93005; 96372; 99284; J1885